=== PATIENT | female | born 1985 | race Caucasian/White ===

== ENCOUNTER 2017-11-01 06:55 | Inpatient (IN) | payer BC, SELFPAY ==
[2017-10-31] MEDS: fentaNYL-bupivacaine (epidural) 100 ML BAG EPIDURAL (19:36)
[2017-11-01 07:27] VITALS: BMI 26.8
[2017-11-01] MEDS: Lactated Ringers 1,000 ML 50 ML IV ×3 (07:40→18:40)
[2017-11-01] MEDS: Oxytocin 30 units/NS 500 ml 30 UNITS/500 ML IV.SOLN IV (07:51)
[2017-11-01 08:19] LABS: Mean Corp Hgb Conc 33.3 g/gl (32-36); Mean Corpuscular Hgb 30.5 pg (27.0-32.0); Mean Corpuscular Volume 91.6 fL (81-99); Mean Platelet Vol. 10.3 fl (6.2-12.0); Platelet Count 229 K/mm3 (150-450); RBC Distribution Width CV 13.2 % (11.6-14.6); RBC Distribution Width SD 44.2 fl (35.1-43.9); Red Blood Count 3.93 M/mm3 (4.2-5.4); White Blood Count 8.8 K/mm3 (4.4-11.0)
[2017-11-01 08:25] LABS: Scan Indicated on CBC? Y/N NO
--- NOTE | 2017-11-01 23:46 | HP.PCM_ITS ---
History Date of Admission: 11/01/17 Final BRENNAN: 11/08/17 Final BRENNAN Source: US <20 weeks Gestational age: 39 Weeks and 0 Days History of this : This is a 32 year-old, at 39 weeks gestational age with EDC of 11/08/2017 by first trimester ultrasound confirming last menstrual period presents for induction of labor. She denies any regular contractions, vaginal bleeding or leaking fluid. She has had good movement. Her amniotic fluid volume in the office this weeks was 4.7 cm. Her has otherwise been uncomplicated to date. Allergies No Known Allergies Allergy (Verified 04/28/15 14:44) Home Medications: Home Medications Vits [Prenatabs FA] 1 tablet PO DAILY 04/28/15 Smoking Status: Never smoker Alcohol: None Number of Fetus(es): 1 Heart Tracing: Normal baseline, moderate variability and spontaneous accelerations. Category 1 upon admission. TOCO Analysis: No regular contractions History Past Pregnancies: Past Pregnancies Delivery Date Name GA/Weeks Outcome Route Weight Infant Gender Labor Length Anesthesia Delivery Location Provider FOB Review of Systems Constitutional: Denies: Anorexia, Chills, Fever Cardiovascular: Denies: Chest Pain, Chest Pressure, Edema Respiratory: Denies: Cough, Shortness of Breath Skin: Denies: Rash Psychiatric: Denies: Anxiety Hematologic/ Lymphatic: Denies: Anemia, Easy Bruising, Easy Bleeding Physical Exam General: Alert, Cooperative, No apparent distress Cardiovascular: Regular Rhythm Lungs: Normal air movement Abdomen: Soft, Non Tender, Non-Distended, Gravid, Appropriate for Gestational Age Extremities:: No edema STAVE AND BOLT EQUALIZER: Normal external genitalia Estimated gestational size: Appropriate for gestational size Presentation: Cephalic Assessment/Plan This is a 32 year-old, at 39 weeks gestation. Here for induction of labor due to oligohydramnios. Risk benefits and alternatives to Pitocin with artificial rupture membranes induction been discussed with the patient, her questions were answered to her satisfaction she desires to proceed. Patient may have Nubain, nitrous oxide or epidural as needed for pain control..
[2017-11-02] MEDS: Lactated Ringers 1,000 ML 50 ML IV (00:16)
[2017-11-02] MEDS: fentaNYL-bupivacaine (epidural) 100 ML BAG EPIDURAL (00:16)
[2017-11-02] MEDS: Oxytocin 30 units/NS 500 ml 30 UNITS/500 ML IV.SOLN 334 UNITS IV (02:28)
--- NOTE | 2017-11-02 02:39 | PCM.OB.VAG ---
Vaginal Delivery Maternal Presentation: Medically Indicated Induction Method of Induction: Pitocin, Amniotomy Medical Reason for Induction: - - oligohydramnios Amniotic Membrane Rupture Type: Artificial Amniotic Fluid Description: Clear Final BRENNAN: 11/08/17 Final BRENNAN Source: US <20 weeks Gestational age: 39 Weeks and 1 Days Date of Procedure: 11/02/17 Pre-Operative Diagnosis: labor Post-Operative Diagnosis: same Surgery/ Procedure Performed: Spontaneous Vaginal Delivery Type of Anesthesia: Epidural Description of Procedure: A vigorous female was delivered DARSHANA over an intact perineum. A loose nuchal cord ?1 was easily reduced. The remainder the infant was delivered with maternal pushing and gentle traction only in less than 15 seconds. The Pitocin infusion was initiated for active management of the third stage. The cord was clamped and cut after 1 minute. The infant was attended to by the waiting nursing staff. The placenta was delivered spontaneously and intact. The cervix and vagina were intact. Sponge and needle counts were correct. A vaginal sweep was completed by me. Presentation: DARSHANA Placental Delivery Description: Spontaneous Placenta Disposition: [facility] Cord Vessel Description: 3 Vessels Nuchal Cord Compression: Without compression Cord Entanglement: Around neck x 1, loose Drain: Taylor to straight drain Estimated Blood Loss: 200 A gender: Female (1 minute): 9 (5 minute): 9 Episiotomy Description: None Laceration: None Medications given after delivery: IV Pitocin Complications: None
[2017-11-02] MEDS: Oxytocin 30 units/NS 500 ml 30 UNITS/500 ML IV.SOLN 167 UNITS IV (02:58)
[2017-11-02 07:45] VITALS: BP 119/73; PULSE 69; RESP 18; TEMP 36.8
[2017-11-02] MEDS: Naproxen 250 MG Tablet PO ×2 (12:20→19:59)
[2017-11-02 12:34] VITALS: BP 111/60; PULSE 68; RESP 18; TEMP 36.4
[2017-11-02 17:00] VITALS: BP 103/57; PULSE 65; RESP 18; TEMP 36.7
[2017-11-02 21:14] VITALS: BP 117/69; PULSE 88; RESP 16; TEMP 36.7; O2SAT 96
[2017-11-02 23:29] VITALS: BP 131/60; PULSE 68; RESP 16; TEMP 36.3; O2SAT 98
[2017-11-03 03:22] VITALS: BP 121/67; PULSE 80; RESP 16; TEMP 36.3; O2SAT 96
[2017-11-03] MEDS: Naproxen 250 MG Tablet PO (08:45)
[2017-11-03] MEDS: Senna/Docusate Sodium 1 Tablet PO (08:45)
[2017-11-03 10:00] VITALS: BP 112/68; PULSE 76; RESP 18; TEMP 37.1
--- NOTE | 2017-11-03 11:43 | PCM.PN.OB ---
Subjective: No complaints - Physical Exam General: Alert, Oriented x3 Abdomen: Soft, Non Tender, Non-Distended - ff mid & below umb Extremities: No Calf Tenderness Vital Signs Temp Pulse Resp BP Pulse Ox 97.4 F L 80 16 121/67 H 96 11/03/17 03:22 11/03/17 03:22 11/03/17 03:22 11/03/17 03:22 11/03/17 03:22 Oxygen Delivery Method Room Air Weight: 166 lb 0.129 oz Body Mass Index (BMI) 26.8 Intake and Output for Last 24 Hours 11/01/17 11/02/17 11/03/17 23:59 23:59 23:59 Intake Total 3116 / 3116 Output Total 1100 / 1100 2049 Balance 2015 -2049 / Medical Necessity - Tobacco Use Smoking Status: Never smoker Assessment/Plan PPD#1 ROutine care
[2017-11-03] MEDS: Acetaminophen 500 MG Tablet 1000 MG PO (14:23)
[2017-11-03 17:47] VITALS: BP 112/70; PULSE 59; RESP 16; TEMP 36.5
[2017-11-03 20:17] VITALS: BP 116/74; PULSE 63; RESP 18; TEMP 36.8
[2017-11-04] MEDS: Naproxen 250 MG Tablet PO (00:23)
[2017-11-04 01:15] VITALS: BP 111/59; PULSE 78; RESP 16; TEMP 36.4
[2017-11-04 08:00] VITALS: BP 110/67; PULSE 72; RESP 16; TEMP 36.7
--- NOTE | 2017-11-04 09:58 | PCM.PN.OB ---
Subjective: No complaints - Physical Exam General: Alert, Oriented x3 Abdomen: Soft, Non Tender, Non-Distended - ff mid & below umb Extremities: No Calf Tenderness Vital Signs Temp Pulse Resp BP Pulse Ox 98.0 F 72 16 110/67 96 11/04/17 08:00 11/04/17 08:00 11/04/17 08:00 11/04/17 08:00 11/03/17 03:22 Oxygen Delivery Method Room Air Weight: 166 lb 0.129 oz Body Mass Index (BMI) 26.8 Intake and Output for Last 24 Hours 11/02/17 11/03/17 11/04/17 23:59 23:59 23:59 Output Total 2049 / 2049 Balance -2049 / -2049 Medical Necessity - Tobacco Use Smoking Status: Never smoker Assessment/Plan PPD#2 D/c home
--- NOTE | 2017-11-04 10:00 | PCM.DCVAG ---
Discharge Diet: No Restrictions Discharge Activity: Return to Normal Activity, May Drive, May Shower May resume sexual activity in: 4-6 weeks Weight Bearing Status: Weight bearing as tolerated Additional Instructions: If you experience any of the following, contact your healthcare provider. Bleeding that soaks a pad every hour for 2 hours Fever 100.4 or higher Unrelieved incision or abdominal pain Swelling, redness, discharge or bleeding from your incision or episiotomy site Your incision begins to separate Problems urinating (including inability to urinate or burning while urinating). Visual changes Severe headache Flu-like symptoms Pain or redness in one of both of your breasts Pain, warmth, tenderness or swelling in your legs, especially the calf area Frequent nausea and vomiting Symptoms of depression or anxiety If you experience any of the following, call 911 or go to the nearest Emergency Room. Chest pain Problems breathing Seizure activity Partial or complete paralysis of a body part, slurred speech, weakness or drooping of the face, or a sudden inability to walk or hold your balance Allergies/Adverse Reactions: Allergies No Known Allergies Allergy (Verified 04/28/15 14:44) Medications to take at Discharge Vits [Prenatabs FA ] 1 tablet PO DAILY 04/28/15 Primary Care Physician: Mil Shea III, MD [Primary Care Provider] - Test Results: Test results from this visit will be discussed in further detail at your follow-up appointment, if applicable.
--- NOTE | 2017-11-04 10:01 | DCINST_ITS ---
Discharge Diet: No Restrictions Discharge Activity: Return to Normal Activity, May Drive, May Shower May resume sexual activity in: 4-6 weeks Weight Bearing Status: Weight bearing as tolerated Additional Instructions: If you experience any of the following, contact your healthcare provider. * Bleeding that soaks a pad every hour for 2 hours * Fever 100.4 or higher * Unrelieved incision or abdominal pain * Swelling, redness, discharge or bleeding from your incision or episiotomy site * Your incision begins to separate * Problems urinating (including inability to urinate or burning while urinating) . * Visual changes * Severe headache * Flu-like symptoms * Pain or redness in one of both of your breasts * Pain, warmth, tenderness or swelling in your legs, especially the calf area * Frequent nausea and vomiting * Symptoms of depression or anxiety If you experience any of the following, call 911 or go to the nearest Emergency Room. * Chest pain * Problems breathing * Seizure activity * Partial or complete paralysis of a body part, slurred speech, weakness or drooping of the face, or a sudden inability to walk or hold your balance Allergies/Adverse Reactions: Allergies No Known Allergies Allergy (Verified 04/28/15 14:44) Medications to take at Discharge Vits [Prenatabs FA ] 1 tablet PO DAILY 04/28/15 Primary Care Physician: Mil Shea III, MD [Primary Care Provider] - Test Results: Test results from this visit will be discussed in further detail at your follow- up appointment, if applicable.
== END 2017-11-04 10:45 | disposition home or self-care (01) | DRG 775 ==
PROVIDERS: Admitting Provider Obstetrics & Gynecology; Family Provider Family Medicine; PCP Family Medicine; Visit Provider Obstetrics & Gynecology
DX: O41.03X0 Oligohydramnios, third trimester, not applicable or unspecified (principal); Z37.0 Single live birth; Z3A.39 39 weeks gestation of pregnancy; O69.81X0 Labor and delivery complicated by cord around neck, without compression, not applicable or unspecified
CPT/HCPCS: 59025; 59050; 85027; 86850; 86900; 99218; J7120; G0378

== ENCOUNTER 2019-10-31 18:30 | Emergency (ER) | payer BC, SELFPAY ==
[2019-10-31 18:32] VITALS: BP 143/69; PULSE 87; RESP 18; TEMP 36.6; O2SAT 98; BMI 28.1
--- NOTE | 2019-10-31 18:47 | RAD_ITS ---
STUDY: X-RAY - PELVIS AND LEFT HIP REASON FOR EXAM: Female, 34 years old. Left hip pain after falling off a trailer. TECHNIQUE: 3 views of the pelvis and hip. COMPARISON: None. FINDINGS: There is a non-specific bowel gas pattern. Normal visualized soft tissue structures. Normal bilateral iliac wings, sacroiliac joints and visualized sacrum. Normal bilateral superior and inferior pubic rami. Normal pubic symphysis. Normal bilateral ischial tuberosities. Normal right hip. Normal visualized left femoral head. Normal left acetabulum. Normal left hip joint. RAD/HIP, UNI W/ Pelvis 2-3 Views IMPRESSION: Normal x-ray examination of the pelvis and left hip. Electronically Signed: Saqib Sheehan DO at 19:39 EDT Tel [phone], Service support ,
--- NOTE | 2019-10-31 18:49 | ED.VISSUMM ---
- ER Visit Summary Date of Service: 10/31/19 Chief Complaint: Fell off a trailer complaining of left buttock, left hip and left ankle pain. No LOC. Did not hit her head. Fell about 2 feet to the ground. History of Present Illness: The patient is a 34 F CM past medical or surgical history. On no medications. Patient was standing on a trailer. She went to step on the wheel rolled and she fell awkwardly to the ground landing on her left buttock and hip and twisting her left ankle. This occurred within the last 2 hours. Denies hitting her head. No neck pain no LOC. No chest or abdominal pain. She is on no medications. Physical Examination: Young female vital signs stable afebrile. H EENT exam pupils round react to light no facial or scalp trauma. No hematoma. C-spine nontender. Normal range of motion to her neck. Trachea midline no lymphadenopathy. Lungs clear to auscultation bilaterally. Heart regular rhythm no murmur rate about 90. Chest wall nontender. Abdomen soft nontender normal bowel sounds. Pelvic girdle intact. Back cervical, thoracic and lumbar spine nontender. Her left buttock area has tenderness mild to the left hip. There is no shortening or external rotation of the hip. The thigh and knee are nontender. She is swelling and tenderness to the left lateral malleolus. DP pulses intact. Foot is nontender. Tib fib and calf are nontender except at the left lateral malleolus. Right upper and left upper extremity and right lower extremity are nontender with normal range of motion. Back and spine are nontender. Neurologically she is awake alert with no focal motor deficits. Patient is a mild bruise on her right calf also. But no bony tenderness to the right leg. Test Results: Left hip and pelvis x-rays read by myself and the radiologist showed no acute fracture or dislocation. 3 views. Left ankle 2 view x-rays read by myself as no acute fracture dislocation read by myself and radiologist. Emergency Department Course and Treatment: [place] for pain. X-rays are being obtained. X-rays were negative. Ida with patient and significant other. Treatment Plan: Aircast and crutches. Ice and elevate. Tylenol Motrin for pain. Follow-up if not improving. Disposition: Discharge Impression: Acute fall Acute left ankle sprain Acute left hip contusion Acute right calf contusion This note was generated with [employer] dictation software. It may contain incorrect words, spelling, and punctuation that were not noted in review of the chart prior to signing ED Disposition - Plan for ED Patient: Referrals: Mil Shea III, MD [Primary Care Provider] -
[2019-10-31] MEDS: HYDROcodone Bitartrate/Apap 5/325 Tablet PO (19:08)
--- NOTE | 2019-10-31 19:20 | RAD_ITS ---
STUDY: X-RAY - LEFT ANKLE REASON FOR EXAM: Female, 34 years old. Left ankle pain after falling off of a trailer. TECHNIQUE: 3 view(s) of the ankle. COMPARISON: None. FINDINGS: Normal visualized distal tibia and fibula. Normal medial and lateral malleoli. Normal tibiotalar articulation and ankle mortise. Normal visualized talus and calcaneus. The visualized subtalar, talonavicular, calcaneocuboid and tarsal articulations are normal. There is no acute fracture, dislocation or destructive osseous pathology. There is anterolateral soft tissue swelling suggesting sprain. RAD/Ankle min 3 Views IMPRESSION: Soft tissue swelling without fracture or dislocation. Electronically Signed: Saqib Sheehan DO at 19:39 EDT Tel [phone], Service support ,
--- NOTE | 2019-10-31 20:02 | ED.DEP ---
ED Disposition - Plan for ED Patient: Disposition: Home or Assisted Living Instructions: ED CONTUSION Hip, ED Sprain Ankle Prescriptions: Hydrocodone/Acetaminophen [[place] 7.5-325 Tablet] 1 ea PO 4X/DAY PRN PRN 20 Days #20 tab PRN Reason: Pain Or Fever Prescription Printed Referrals: Mil Shea III, MD [Primary Care Provider] - 1 Week if not improving Additional Instructions: Ice and elevate both her ankle and hip to decrease pain and swelling. Motrin for pain and swelling Tylenol for pain. Initially no weightbearing and then as the swelling is going down to the pain improving to touchdown weightbearing and then begin walking. Aircast to walk. Follow-up with your doctor if not improving. Your x-rays tonight showed no broken bones.
[2019-10-31 20:50] VITALS: BP 117/73; RESP 14
== END 2019-10-31 21:02 | disposition home or self-care (01) ==
PROVIDERS: Emergency Provider Emergency Medicine; PCP Family Medicine
DX: S93.402A Sprain of unspecified ligament of left ankle, initial encounter (principal); S80.11XA Contusion of right lower leg, initial encounter; S70.02XA Contusion of left hip, initial encounter; W17.89XA Other fall from one level to another, initial encounter; Y93.9 Activity, unspecified; Y92.9 Unspecified place or not applicable
CPT/HCPCS: 73502; 73610; 99284